=== PATIENT | male | born 1985 | race Caucasian/White ===

== ENCOUNTER 2025-03-04 22:31 | Emergency (ER) | payer SELFPAY ==
[2025-03-04] MEDS: Cyclobenzaprine 10 MG Tab PO ONE (23:10)
[2025-03-04] MEDS: Acetaminophen 500 MG Tab PO ONE (23:11)
[2025-03-04] MEDS: Ketorolac 30 MG/ML SDV IM ONE (23:16)
[2025-03-04] MEDS: diphenhydrAMINE 50 MG/ML SDV IM ONE (23:16)
[2025-03-04 23:23] LABS: BASOPHILS ABSOLUTE AUTO 0.1 x10-3/uL (0.0-0.3); BASOPHILS PERCENT AUTO 0.6 % (0.3-3.8); EOSINOPHILS ABSOLUTE AUTO 0.1 x10-3/uL (0.0-0.6); EOSINOPHILS PERCENT AUTO 1.4 % (0.1-6.8); HEMATOCRIT 45.5 % (38.3-50.1); HEMOGLOBIN 16.1 g/dL (12.9-17.7); LYMPHOCYTES PERCENT AUTO 30.1 % (15.8-45.3); MEAN CORPUSCULAR HEMOGLOBIN 32.8 pg (27.0-33.3); MEAN CORPUSCULAR HGB CONC 35.4 g/dL (28.7-35.3); MEAN CORPUSCULAR VOLUME 92.7 fL (80.8-98.7); MEAN PLATELET VOLUME 8.7 fL (6.7-11.0); MONOCYTES ABSOLUTE AUTO 0.7 x10-3/uL (0.0-1.2); MONOCYTES PERCENT AUTO 6.9 % (5.5-15.2); PLATELET COUNT,PLT 265 x10(3)uL (117-477); RED CELL DISTRIBUTION WIDTH 12.8 % (12.4-15.0); WHITE BLOOD CELL COUNT,WBC 9.9 x10-3/uL (3.2-10.1)
[2025-03-04 23:25] LABS: BLOOD UREA NITROGEN,BUN 15 mg/dL (7-18); BUN/CREATININE RATIO 13.6 (9-20); CALCIUM 9.8 mg/dL (8.6-10.2); CARBON DIOXIDE,CO2 26 mmol/L (21-32); CHLORIDE,CL 101 mmol/L (100-110); CREATININE 1.1 mg/dL (0.70-1.30); EST CRCL DRUG DOSING (CG) 118.87 mL/min; ESTIMATED GFR 89 mL/min (>60); GLUCOSE RANDOM 100 mg/dL (80-116); POTASSIUM,K 3.1 mmol/L (3.5-5.3); SODIUM,NA 140 mmol/L (135-145)
[2025-03-04 23:31] LABS: A/G RATIO 1.6; ALANINE AMINOTRANSFERASE,ALT 33 U/L (12-36); ALBUMIN 4.8 g/dL (3.5-5.2); ALKALINE PHOSPHATASE 71 IU/L (56-112); ASPARTATE AMNIOTRANSFERASE,AST 21 IU/L (5-25); BILIRUBIN TOTAL 1.4 mg/dL (0.1-1.3); MAGNESIUM 2.2 mg/dL (1.8-2.5); PROTEIN TOTAL,TP 7.9 g/dL (6.0-8.0)
[2025-03-04] MEDS: Potassium Chloride 20 MEQ Tab.ER PO ONE (23:57)
== END 2025-03-05 00:23 | disposition home or self-care (01) ==
LOC: FB.ED 22:31
DX: S29.012A Strain of muscle and tendon of back wall of thorax, initial encounter (principal); M62.838 Other muscle spasm; E87.6 Hypokalemia; Z88.8 Allergy status to other drugs, medicaments and biological substances; Z79.899 Other long term (current) drug therapy; X50.1XXA Overexertion from prolonged static or awkward postures, initial encounter
CPT/HCPCS: 36415; 80053; 83735; 85025; 96372; 99283; 99284; A9270-GY; J1200; J1885